=== PATIENT | female | born 1930 | race Caucasian/White ===

== ENCOUNTER 2019-05-01 00:37 | Emergency (ER) | payer MEDICARE, OTHER ==
[~2019-05-01] VITALS: Ht 165.1 cm; Wt 140.0 kg
[2019-05-01 00:59] VITALS: BP 115/69
[2019-05-01] MEDS ORDERED: LIDOcaine 1% W/epiNEPHrine 1:100,000 20ml vial SQ ONE (03:20)
== END 2019-05-01 06:24 | disposition home or self-care (01) ==
LOC: ER 00:38
DX: S51.811A Laceration without foreign body of right forearm, initial encounter (principal); F03.90 Unspecified dementia, unspecified severity, without behavioral disturbance, psychotic disturbance, mood disturbance, and anxiety; E07.9 Disorder of thyroid, unspecified; W18.39XA Other fall on same level, initial encounter; Y93.89 Activity, other specified; Y92.89 Other specified places as the place of occurrence of the external cause; Y99.8 Other external cause status
CPT/HCPCS: 12002; 99284